=== PATIENT | male | born 1955 | race Caucasian/White ===

== ENCOUNTER → 2016-08-22 | Outpatient (CLI) | payer OTHER, MEDICARE ==
[~2016-08-22] MED LIST: ATARAX25 MG PO; COMBIVENT RESPIM4 GM INH; DEPO-TESTO100 MG/1 M IM; EFFEXOR XR75 MG PO; JANUVIA25 MG PO; JUNEL 1 MG-201 EACH PO; LASIX40 MG PO; LASIX80 MG PO; LIPITOR80 MG PO; LOPRESSOR100 MG PO; NORVASC10 MG PO; PRILOSEC20 MG PO; PRINIVIL20 MG PO; VITAMIN D35000 UNIT PO
== END | disposition short-term general hospital (02) ==
LOC: CLNEPH 12:59
DX: I13.0 Hypertensive heart and chronic kidney disease with heart failure and stage 1 through stage 4 chronic kidney disease, or unspecified chronic kidney disease (principal); I50.22 Chronic systolic (congestive) heart failure; E11.22 Type 2 diabetes mellitus with diabetic chronic kidney disease; N18.4 Chronic kidney disease, stage 4 (severe); D63.1 Anemia in chronic kidney disease